=== PATIENT | male | born 1940 | race Caucasian/White ===

== ENCOUNTER 2017-02-13 08:41 | Outpatient (CLI) | payer OTHER, BC ==
--- NOTE | 2017-02-13 10:11 | DIAGNOSTIC IMAGING REPORT ---
PROCEDURE: US ABDOMEN ULTRASOUND-LIMITED INDICATION: ABN LFT TECHNIQUE: Goel scale and color Doppler sonographic images of the abdomen were obtained. COMPARISON: None. FINDINGS: Liver measures 18.9 cm with diffuse increased echogenicity. 6 mm left hepatic lobe cyst. Normal gallbladder and CBD (2.6 mm). Normal spleen. Pancreas not well visualized. IVC is patent. Normal hepatopetal flow. Normal right kidney measures 11 cm. IMPRESSION: 1. Hepatic steatosis versus intrinsic liver disease 2. 6 mm left hepatic lobe cyst
== END 2017-02-13 23:00 ==
LOC: US SRH 08:41
DX: R94.5 Abnormal results of liver function studies (principal); K76.89 Other specified diseases of liver

== ENCOUNTER 2017-03-23 09:07 | Outpatient (CLI) | payer OTHER, BC ==
--- NOTE | 2017-03-23 10:32 | DIAGNOSTIC IMAGING REPORT ---
PROCEDURE: US ABDOMEN ULTRASOUND-LIMITED INDICATION: ABNORMAL LFTS TECHNIQUE: Goel scale and color Doppler sonographic images of the abdomen were obtained without comparison. COMPARISON: Abdominal ultrasound dated 02/13/2017 FINDINGS: The liver measures 18.3 cm with diffuse increased echogenicity see. There is 6 mm left hepatic lobe cyst. The gallbladder is normal without stones or sludge. The wall is normal thickness measuring 1.9 mm No pericholecystic fluid or Hassan sign. The extrahepatic common duct is normal measuring 5 mm The visualized pancreas is normal without ductal dilatation or peripancreatic fluid collection. The abdominal aorta is normal in its course and caliber. The retrohepatic inferior vena cava is patent. There is appropriate hepatopetal flow in the portal vein. The right kidney measures 11.1 cm in length. IMPRESSION: 1. Fatty liver 2. 6 mm left hepatic lobe cyst
== END 2017-03-23 23:00 ==
LOC: US SRH 09:07
DX: K76.0 Fatty (change of) liver, not elsewhere classified (principal); K76.89 Other specified diseases of liver